=== PATIENT | male | born 1940 | race Asian ===

== ENCOUNTER → 2016-09-13 | Outpatient (CLI) | payer OTHER ==
[~2016-09-13] MED LIST: ADV100 IH; ALBU17AE27; ASPI81TA2; ATOR40TA28; BUDE10.2 IH; DOCU-119 PO; FOLI1TAB15 PO; METO25 PO; MOME17N; OMEP20TA86; VALS160T2; [UNRECOGNIZED DRUG - OTHER]
== END | disposition home or self-care (01) ==
LOC: RADPV 10:47
PROVIDERS: ATTEND Internal Medicine
DX: E04.2 Nontoxic multinodular goiter (principal)
CPT/HCPCS: 76536

== ENCOUNTER 2017-09-29 10:52 | Emergency (ER) | payer MEDICARE, OTHER ==
[~2017-09-29] VITALS: Ht 170.2 cm; Wt 158.0 kg
[~2017-09-29 10:52] MED LIST changes: +ASPI-1198 PO; -ASPI81TA2; +OMEP20TA25; -OMEP20TA86
[2017-09-29] MEDS ORDERED: AMLO-511 PO (11:07)
[2017-09-29] MEDS ORDERED: TRAM50TA4 PO (11:07)
[2017-09-29] MEDS ORDERED: BIMA12.5OS OU (11:07)
[2017-09-29] MEDS ORDERED: ISOS60TA4 PO (11:07)
[2017-09-29] MEDS ORDERED: HYDR-4061 PO (11:07)
[2017-09-29] MEDS ORDERED: VALS160T2 PO (11:07)
[2017-09-29] MEDS ORDERED: MOME13HF IH (11:07)
[2017-09-29] MEDS ORDERED: DUTA.5 PO (11:07)
[2017-09-29] MEDS ORDERED: IPRATROPIUM BROMIDE 0.5 MG/2.5 ML NEB SOLUTION NEB ONE (13:00)
[2017-09-29] MEDS ORDERED: ALBUTEROL SULFATE 2.5 MG/0.5 ML NEB SOLUTION NEB ONE (13:00)
[2017-09-29 14:52] VITALS: BP 138/74
== END 2017-09-29 14:55 | disposition home or self-care (01) ==
LOC: EMS 10:54
DX: J45.909 Unspecified asthma, uncomplicated (principal); I11.0 Hypertensive heart disease with heart failure; I50.9 Heart failure, unspecified; E78.00 Pure hypercholesterolemia, unspecified; Z79.899 Other long term (current) drug therapy; Z79.82 Long term (current) use of aspirin
CPT/HCPCS: 94640; 99283